=== PATIENT | female | born 1950 | race Caucasian/White ===

== ENCOUNTER 2017-02-08 14:39 | Observation (INO) | payer MEDICARE, OTHER ==
--- NOTE | ~2017-02-08 | CO ---
Unit #: [id number] #: [id number] Patient: MARY CALDERÓN [id number] [address] [address] [id number] I MR#: [id number] NAME: MARY CALDERÓN ROOM: 331 Age: 66 Sex: F Admission Date: 02/08/2017 : 1950 Attending Physician: Dot Paige M.D. Primary Care Physician: Danielle Ornelas Aprn Consultation Date: 02/09/2017 CONSULTATION REPORT REASON FOR CONSULTATION Renal failure. Thank you very much for asking me to see this patient. HISTORY OF PRESENT ILLNESS Ms. Mary Calderón is a 66-year-old female, with history of end-stage renal disease, on hemodialysis every Monday, , and Monday; history of atrial fibrillation; history of diabetes, who presented to the hospital last night complaining of chest pain. Apparently, the patient fell on Monday. She does not remember what happened, she just remembers landing her face first on the floor and now with large hematoma and bruising on her face and shoulders. She was admitted for chest discomfort. She states she does not have any shortness of breath. No nausea or vomiting. No diarrhea. She denies any significant lower extremity swelling. Again, she went to dialysis on Tuesdays and using a tunneled catheter in her chest but has a maturing fistula in her right upper arm. PAST MEDICAL HISTORY History of end-stage renal disease, as mentioned above with dialysis every Monday, , Monday; history of atrial fibrillation; history of diabetes mellitus; history of CVA; history of ovarian CA; history of Clostridium difficile in the past. REVIEW OF SYSTEMS As mentioned in the HPI. She denies any fevers, chills, cough, or hemoptysis. No neck pain or neck stiffness she denies any severe abdominal pain, nausea, vomiting, or diarrhea. She denies any recent seizures or strokes. SOCIAL HISTORY No alcohol or smoking at this time. ALLERGIES No known drug allergies. MEDICATIONS At home include Vimpat 100 mg b.i.d., Claritin 10 mg a day, Lopressor 12.5 mg b.i.d., pyridoxine 50 mg a day, Xanax t.i.d., Eliquis 2.5 mg b.i.d., aspirin 81 mg a day, Lipitor 10 mg a day, Klonopin 1 mg b.i.d., Colace 100 mg b.i.d., Prozac 40 mg a day, Neurontin 100 mg at night, Lortab p.r.n. for pain, and insulin. Unit #: [id number] #: [id number] Patient: MARY CALDERÓN PHYSICAL EXAMINATION GENERAL: She is alert and oriented. VITAL SIGNS: Her T-max is 98.8, her pulse is 61 to 75, her blood pressure is 120 to 168 over 40s to 100. HEENT: She has a large hematoma on her left forehead. She has bilateral periorbital bruising. She has some bruising on her face, on her chin. NECK: Supple. No adenopathy. CARDIAC: She is without a rub. No S3 or S4. Irregular. LUNGS: Clear bilaterally. No wheezes, rhonchi, or rales. ABDOMEN: Overweight, bowel sounds positive, nontender, soft. EXTREMITIES: She has no significant lower extremity swelling. She has a tunneled catheter in her upper right chest. She has a fistula maturing in right arm. : Deferred. NEURO: She is alert and oriented. DIAGNOSTIC STUDIES IMAGING STUDIES: She had a chest x-ray yesterday on presentation in the emergency room that showed some cardiomegaly, but no evidence of any infiltrates or effusions or congestive heart failure. LABORATORY RESULTS: When she was admitted yesterday she had a potassium of 4.9, labs this morning shows BUN and creatinine of 47 and 6.2, glucose was up to 354, potassium is 5.9, bicarb is 22, chloride is 98, calcium is 8.2. Liver function tests were normal. BNP was 437. Troponin 0.03. Her INR is 1.1. Her hemoglobin is 10.5, white count 12,000, platelets 186,000. ASSESSMENT AND PLAN 1. End-stage renal disease. We will plan on dialyzing the patient today. We will remove 2 to 3 L, put her on a 2 potassium bath. Her potassium is elevated this morning, although part of that is also related to hyperglycemia. We will plan on Monday, , Monday dialysis while she is here. 2. Hyperkalemia. As mentioned above, related to renal failure as well as hyperglycemia. 3. Status post fall with lot of abrasions and bruising on her face. 4. History of diabetes mellitus. 5. History of anemia. Hemoglobin is 10.5 today. We will give EPO with dialysis. 6. Chest pain, questionable from her fall versus cardiac has been worked up. Dictated by.Timur Cramer M.D. FATOU/campos TD: 02/10/2017 06:29 JOB #: [id number] Unit #: [id number] #: [id number] Patient: MARY CALDERÓN CONSULTATION REPORT Page 1 of 1 X Kimberly Cramer MD X CONSULTATION REPORT
--- NOTE | ~2017-02-08 | CR72 ---
[facility] A Service of [facility] RADIOLOGY TEXT RESULTS PATIENT: MARY CALDERÓN [facility]: [facility] 331-01 : 52 UNIT #: [id number] AGE: [address]: Dot Paige MD SEX: F ORDER DR: [id number] [facility] [address] [facility]. [place], [place] [address] [id number] MR#: [id number] Acc #: [id number] NAME: MARY CALDERÓN : 1950 SEX: F STUDY DATE/TIME: 02/08/2017 13:48 UNIT: AL[place] ROOM: STUDY DESCRIPTION: CR Chest Single View Portable Attending Physician: Annabella Knowles M.D. Ordering Physician: Annabella Knowles M.D. Primary Care Physician: Danielle Ornelas Aprn MEDICAL IMAGING REPORT This report is preliminary unless electronic signature is present EXAM Chest, portable. DATE OF EXAM 02/08/2017, 1348 hours. CLINICAL HISTORY 66-year-old with history of shortness of air for 2 hours prior to admission. COMPARISON 09/10/2016 FINDINGS Portable upright chest demonstrates moderate cardiomegaly increased from 09/10/2016, which could be due to cardiomegaly or pericardial fluid. There is a right central venous catheter with inferior tip in the lower right atrium unchanged. There is perihilar vascular crowding without definite edema, pneumonia or effusion. Calcified granulomatous changes are present. IMPRESSION 1. Lung volumes are lower. Cardiac silhouette is increased from 09/10/2016, which could be exaggerated by the low lung volumes. The presence of cardiomegaly and/or pericardial fluid cannot be excluded. The lungs are clear and there are no effusions. 2. Stable right central venous catheter with inferior tip in the lower right atrium. Dictated by... Cindy Ibarra M.D. [facility] A Service of [facility] RADIOLOGY TEXT RESULTS PATIENT: MARY CALDERÓN LOCATION: [facility] 331-01 : [birth year] UNIT #: [id number] AGE: [address]: Dot Paige MD SEX: F ORDER DR: THIS IS AN ELECTRONICALLY VERIFIED REPORT Cindy Ibarra M.D. at 02/09/2017 9:34 AM GERARDO/america TD: 02/08/2017 15:41 JOB #: [id number] MEDICAL IMAGING REPORT Page 1 of 1 COPY
--- NOTE | ~2017-02-08 | DS ---
Unit #: [id number] #: [id number] Patient: MARY CALDERÓN [id number] [address] [address] [id number] I MR#: [id number] NAME: MARY CALDERÓN ROOM: 331 Age: 66 Sex: F Admission Date: 02/08/2017 : 1950 Discharge Date: Attending Physician: Dot Paige M.D. Primary Care Physician: Danielle Ornelas, Trevor DISCHARGE SUMMARY PRINCIPAL DIAGNOSES 1. Chest pain, atypical, unlikely musculoskeletal. 2. Hyperkalemia. 3. End-stage renal disease, maintained on hemodialysis Monday, , and Monday. 4. Atrial fibrillation. 5. Diabetes mellitus type 2, insulin-requiring. 6. Prior history of stroke. 7. History of questionable memory loss. 8. History of ovarian cancer. 9. Hypertension. 10. Anxiety. 11. Depression. 12. Prior history of seizure. 13. Morbid obesity. 14. Probable obstructive sleep apnea. ROPE CLEANER(S) 1. Dr. Cramer, nephrology. 2. Dr. Cutler, cardiology. PROCEDURE(S) 1. Stress echo results which are currently pending. 2. Hemodialysis on , February 09, 2017. 3. Chest x-ray, February 08, 2017, with clear lungs. CLINICAL HISTORY AND HOSPITAL COURSE Mr. Calderón is a 66-year-old female who presents to the emergency department with complaints of shortness of breath in addition to chest pain. Symptoms began after a fall on Monday with subsequent hematoma formation over the left forehead and bilateral black eyes. The patient was complaining of chest tenderness and bilateral arm pain. Troponin was unremarkable and EKG was unremarkable. She was placed on observation for further evaluation. Dr. Cutler was consulted, and the patient has undergone stress echo. This report is currently pending. We will await results. Dr. Cramer was consulted given the patient's end-stage renal disease, and she did complete hemodialysis on February 09. She did have some associated electrolyte abnormalities including hyperkalemia. This was corrected on hemodialysis. The patient today states that she feels fine, and states she wants to go home. I anticipate she will be discharged home and stress echo is Unit #: [id number] #: [id number] Patient: MARY CALDERÓN negative. CONDITION ON DISCHARGE Stable. DISCHARGE STATUS Discharge to home. DISCHARGE MEDICATIONS 1. Eliquis 2.5 mg b.i.d. 2. Claritin 10 mg daily. 3. Lantus 45 units subcutaneously b.i.d. 4. Neurontin 100 mg at bedtime. 5. Lipitor 10 mg at bedtime. 6. Lopressor 12.5 mg b.i.d. 7. Vimpat 100 mg b.i.d. 8. Klonopin 1 mg p.o. b.i.d. p.r.n. for anxiety. 9. Pyridoxine 50 mg daily. 10. Prozac 40 mg daily. 11. Aspirin 81 mg daily. 12. Colace 100 mg b.i.d. 13. Lortab 5/325, 1 q. 8 hours p.r.n. for pain. DISCHARGE INSTRUCTIONS The patient was instructed a heart healthy low-calorie, low-carbohydrate diet. She can increase activity as tolerated to obtain Accu-Cheks a.c. and h.s. at home. FOLLOWUP The patient again will continue hemodialysis Monday, , and Monday. She will follow up with her primary care provider in 2 weeks. Dictated by... Dot Paige M.D. KASANDRA/felicia TD: 02/10/2017 08:50 JOB #: [id number] DISCHARGE SUMMARY Page 1 of 1 X Dot Paige MD X DISCHARGE SUMMARY
--- NOTE | ~2017-02-08 | HP ---
Unit #: [id number] #: [id number] Patient: MARY CALDERÓN [id number] [address] [address] [id number] I MR#: [id number] NAME: MARY CALDERÓN ROOM: 84766 Age: 66 Sex: F Admission Date: 02/08/2017 : 1950 Attending Physician: Rose Thrasher M.D. Primary Care Physician: Danielle Ornelas Aprn HISTORY AND PHYSICAL CHIEF COMPLAINT Shortness of breath. HISTORY OF PRESENT ILLNESS The patient is a 66-year-old female with history of end-stage renal disease on dialysis, atrial fibrillation on chronic anticoagulation, diabetes, CVA, thyroid goiter, ovarian cancer, C difficile and hypertension, brought to the emergency room complaining of the shortness of breath and dyspnea. The patient also complains of the heaviness on the chest and on bilateral arms for one hour. The patient was brought to the emergency room for the above reasons. The patient denies any fever, chills, or atrial fibrillation. The patient had a fall on Monday with bruises on the left upper eyelid and periocular region. The patient is being admitted for the above reasons. However, the patient is screaming that she wants to go home but Alexis, the , and the ER physician stated the patient has a history of dementia and that she is going to stay with the agreeing that she will stay overnight. PAST MEDICAL HISTORY 1. History of altered mental status. 2. End-stage renal disease. 3. Atrial fibrillation. 4. Diabetes. 5. Goiter. 6. CVA. 7. Ovarian cancer. 8. C difficile. 9. Hypertension. PAST SURGICAL HISTORY 1. Cardiac catheterization. 2. Laser surgery. 3. Total abdominal hysterectomy and bilateral salpingo-oophorectomy for ovarian cancer. 4. Colonoscopy. 5. Thyroid surgery. HOME MEDICATIONS 1. Xanax. 2. Eliquis. 3. Aspirin. 4. Lipitor. 5. Klonopin. 6. Colace. Unit #: [id number] #: [id number] Patient: MARY CALDERÓN 7. Prozac. 8. Neurontin. 9. Lortab. 10. Lantus. 11. Vimpat. 12. Claritin. 13. Lopressor. 14. Pyridoxine. ALLERGIES No known drug allergies. SOCIAL HISTORY The patient lives with her . There is on tobacco, alcohol or any illicit drug abuse. Her code status is a DO NOT RESUSCITATE from the records. She walks with a walker. FAMILY HISTORY Notable for colon cancer. REVIEW OF SYSTEMS A 14-point review of systems performed and only pertinent positive findings are described above, remaining are negative. PHYSICAL EXAMINATION VITAL SIGNS: Temperature 97.9, pulse 75, respiratory rate 26, blood pressure 149/100, saturating 99% at room air. GENERAL: Patient is lying on the bed, is screaming that she wants to go home. HEENT: Atraumatic, normocephalic. Orbital swelling with bruises and hematoma on the left forehead above the eyelid. NECK: Supple. LUNGS: Decreased air entry at the bases. HEART: Irregular rate and rhythm. ABDOMEN: Soft, positive bowel sounds. EXTREMITIES: No cyanosis. NEUROLOGIC: Alert, awake, oriented. DIAGNOSTIC STUDIES LABORATORY: pH 7.43, pCO2 of 43, pO2 of 105, bicarb 29, oxygen saturation 97.2. Glucose 247, BUN 37, creatinine 5.2, sodium 137, potassium 4.9, chloride 96, bicarb 28, calcium 8.4, total protein 7.4, AST 21, ALT 20, alkaline phosphatase 107 and BNP is 437. WBC 11.4, hemoglobin 10.2, hematocrit 32.1, platelets 213, neutrophils 82.6%. CARDIOVASCULAR: EKG shows atrial fibrillation at a rate of 70 beats per minute, nonspecific ST-T abnormalities. QTC of 501. ASSESSMENT AND PLAN 1. Chest pain, rule out ischemia. 2. End-stage renal disease on dialysis. 3. Status post fall with hematoma left forehead. PLAN 1. Admit patient as observation with telemetry. 2. Continue with serial troponins to rule out ischemia. 3. Cardiology evaluation for the chest pain. 4. Renal for hemodialysis. Unit #: [id number] #: [id number] Patient: MARY CALDERÓN 5. Hold Xanax, Klonopin, and blood thinner. 6. Further recommendations will follow as more lab results become available. Dictated by Cherie Barboza TD: 02/08/2017 19:53 JOB #: [id number] HISTORY AND PHYSICAL Page 1 of 1 X X HISTORY AND PHYSICAL
--- NOTE | ~2017-02-08 | CO ---
Unit #: [id number] #: [id number] Patient: MARY CALDERÓN [id number] [facility]. [place], [place] [address] [id number] I MR#: [id number] NAME: MARY CALDERÓN ROOM: 331 Age: 66 Sex: F Admission Date: 02/08/2017 : 1950 Attending Physician: Dot Paige M.D. Primary Care Physician: Danielle Ornelas Aprn Consultation Date: 02/09/2017 CONSULTATION REPORT REASON FOR CONSULTATION Chest pain. HISTORY OF PRESENT ILLNESS The patient is a 66-year-old female with a history of paroxysmal atrial fibrillation, end-stage renal disease, on dialysis, CVA, nonobstructive coronary artery disease, hypertension, diabetes mellitus, who presented to the hospital with complaints of chest pain. The patient had a fall and syncopal episode on Monday and was treated at [facility] Emergency Department at that time. The patient states at that time, she was seated in her chair and then ended up on the floor. According to the ER records, it looks like the patient tried to stand and then ended up on the floor. There was amnesia associated with the event. The patient has subsequent hematoma above her left eye and bruising under both eyes as well as below her chin. The patient developed chest pressure on 02/08/2017. The patient states that she was seated at that time, the pressure was in the center of her chest that she had radiation to her arms as well. There was a little shortness of breath, but no nausea, vomiting, or diaphoresis. She states that the discomfort lasted approximately 1 hour overall and she did not receive any nitroglycerin. The patient does not follow with a cable splicing technician. The patient was sitting at that time, the chest pressure started. PAST CARDIAC TESTING HISTORY She had a left heart catheterization on 01/10/2008 at [facility] with Dr. Monserrat Edouard that showed an ejection fraction of 65%. LVEDP was 25. The left main and left circumflex are normal. The LAD had luminal irregularities. The RCA had a distal 40% stenosis proximal to the bifurcation of the posterolateral branch and PDA. PAST MEDICAL HISTORY 1. Paroxysmal atrial fibrillation. 2. Nonobstructive coronary artery disease. 3. End-stage renal disease, on dialysis. 4. History of CVA with residual right sided weakness. 5. History of ovarian cancer. 6. Diabetes mellitus. 7. Hypertension. 8. Hyperlipidemia. 9. Thyroid, goiter. 10. History of C diff. MEDICATIONS Her home medications are Vimpat 100 mg b.i.d., Claritin 10 mg daily, Unit #: [id number] #: [id number] Patient: MARY CALDERÓN Lopressor 12.5 mg b.i.d., pyridoxine 50 mg daily, Xanax 0.5 mg t.i.d. p.r.n., Eliquis 2.5 mg b.i.d., aspirin 81 mg daily, Lipitor 10 mg q.h.s., Klonopin 1 mg b.i.d., Colace 100 mg b.i.d., Prozac 40 mg daily, Neurontin 100 mg q.h.s., Lortab 10/325 q.8 hours p.r.n., Lantus 45 units subcu b.i.d. ALLERGIES She has no known drug allergies. SOCIAL HISTORY She does not smoke and has never smoked. She denies alcohol use or illicit drug use. She is and lives at home with her . FAMILY HISTORY Mother of an OK at the age of 64, a brother had an OK in his 60s and another brother had OK in his 60s. REVIEW OF SYSTEMS GENERAL: The patient denies recent fevers or chills, but she has recently been treated for bronchitis with antibiotics and steroids and is currently off both medications. HEENT: Denies frequent headaches. Denies epistaxis or dysphagia. SKIN: Denies rashes or hives. PULMONARY: Still with occasional cough and wheezing. CARDIAC: As above. Denies palpitations or tachycardia. She does have orthopnea and sleeps in the hospital bed with head of bed elevated. GI: Denies nausea, vomiting, diarrhea, or melena. : Denies hematuria. EXTREMITIES: Denies swelling. NEUROLOGIC: Syncopal episode as discussed above, possibly due to position change. DIAGNOSTIC STUDIES LABORATORY RESULTS: Troponin was 0.03 at 4:45 this morning, 0.03 at 21:14 yesterday and less than 0.05 at 14:09 yesterday. Sodium 135, potassium 5.9, chloride 98, CO2 of 22, BUN 47, creatinine 6.6, and glucose 354. White blood cell 12.0, hemoglobin is 10.5, hematocrit 32.6, and platelets are 186. PT 11.1, INR 1.1. IMAGING STUDIES: Chest x-ray shows low lung volumes. There is an increase in cardiac size from 09/10/2016. Cardiomegaly and/or pericardial fluid could not be excluded. EKG shows normal sinus rhythm with nonspecific ST abnormality. Nonobstructive coronary disease by left heart catheterization in 2007. PHYSICAL EXAMINATION VITAL SIGNS: Blood pressure is 165/73, heart rate 66 and regular, respirations 18, temperature is 97.8, O2 saturation 99% on room air, weight 113 kg. GENERAL: The patient is a well-nourished, obese female, in no acute distress. Awake and oriented x3. The patient responds to questions appropriately. Speech is somewhat delayed. SKIN: There is a hematoma above the left eye as well as ecchymoses bilaterally under each eye and below her chin in the neck area. NECK: No JVD. SPINE: No scoliosis. CHEST: Clear to auscultation bilaterally with bilateral wheezes. No rhonchi. No accessory muscle use. CORONARY: Regular rate and rhythm without murmur, gallop, rub, or lift. Unit #: [id number] #: [id number] Patient: MARY CALDERÓN ABDOMEN: Soft, nontender, nondistended. Positive bowel sounds x4. The abdominal pulsation is not enlarged. EXTREMITIES: No clubbing, cyanosis, or edema. NEUROLOGIC: Awake and oriented x3. ASSESSMENT AND PLAN 1. Chest pain. 2. Diabetes mellitus. 3. Hypertension. 4. Paroxysmal atrial fibrillation, on Eliquis. 5. History of cerebrovascular accident in 2011. 6. End-stage renal disease, on dialysis. 7. Recent syncope with fall. 8. Hyperkalemia, treated with insulin and D50. Ms. Calderón's case was discussed with Dr. Vinayak Cutler. Serial troponins are negative. The patient will have a dobutamine stress echo and further recommendations will follow. Further recommendations will follow based on the results of the patient's dobutamine stress echo. Dictated by... Sunshine Mensah, P.A.C. for Vinayak Cutler M.D. CMG/campos TD: 02/10/2017 06:39 JOB #: [id number] CONSULTATION REPORT Page 1 of 1 X X CONSULTATION REPORT
--- NOTE | ~2017-02-08 | DS ---
Unit #: [id number] #: [id number] Patient: MARY CALDERÓN [id number] [facility]. [place], [place] [address] [id number] I MR#: [id number] NAME: MARY CALDERÓN ROOM: 331 Age: Sex: F Admission Date: 02/08/2017 : 1950 Discharge Date: 02/10/2017 Attending Physician: Dot Paige M.D. Primary Care Physician: Danielle Ornelas Aprn DISCHARGE SUMMARY ADDENDUM PROCEDURE Stress echocardiogram which is negative for ischemia. HOSPITAL COURSE The patient was maintained overnight awaiting echo results. This was negative. Today, she has had no chest pain. There were concerns because the patient kept repeating she wanted to go home. I think there was concern that perhaps patient was confused or hallucinating and she was given a dose of Haldol; however, this morning as she was yesterday, she is alert and oriented x3, can answer all appropriate questions including timeframe and states simply she feels fine and she wants to go home. I am going to cancel psychiatric consult as ordered yesterday and discharge her home. DISCHARGE MEDICATIONS Discharge medications are as previously dictated yesterday. Dictated by... Dot Paige M.D. KASANDRA/yanick TD: 02/11/2017 13:26 JOB #: [id number] DISCHARGE SUMMARY Page 1 of 1 X Dot Paige MD DISCHARGE SUMMARY
--- NOTE | ~2017-02-08 | EKG ---
PATIENT: MARY CALDERÓN UNIT #: [id number] Ventricular Rate: 70 BPM Atrial Rate: 70 BPM P-R Interval: 154 ms QRS Duration: 96 ms Q-T Interval: 464 ms QTC Calculation(Bezet): 501 ms P Davenport: 57 degrees Calculated R Daven[place]: 5 degrees Calculated T Davenport: 6 degrees Diagnosis Line: Sinus rhythm Diagnosis Line: Nonspecific ST abnormality Diagnosis Line: Prolonged QT Diagnosis Line: Abnormal ECG Diagnosis Line: When compared with ECG of 01-APR-2016 20:32, Diagnosis Line: Current undetermined rhythm precludes rhythm Diagnosis Line: comparison, needs review Diagnosis Line: Confirmed by ANGELES BIRCH MD ([id number]) on 02/12/2017 Diagnosis Line: 3:50:10 PM INTERPRETING MD: EYAL YOO
[2017-02-08 14:10] LABS: ARTERIAL BLD GAS O2 SATURATION 96.2 % (90.0-100.0); ARTERIAL BLOOD GAS CARBOXY HB 1.3 %sat (0.0-9.0); ARTERIAL BLOOD GAS HCO3 29.4 mmol/L; ARTERIAL BLOOD GAS MET HB 0.8 %sat (0.0-2.0); ARTERIAL BLOOD GAS PCO2 43.8 mmHg (35.0-45.0); ARTERIAL BLOOD GAS pH 7.435 (7.350-7.450)
[2017-02-08 14:11] LABS: POC - CKMB 2.3 ng/mL (0.0-7.9); POC - TROPONIN <0.05 ng/mL (<=0.05)
[2017-02-08 14:12] LABS: ARTERIAL BLOOD GAS ALLEN TEST POS; ARTERIAL BLOOD GAS ART SITE LEFT RADIAL; ARTERIAL BLOOD GAS DELIVERY VENTURI MASK; ARTERIAL DRAW? YES
[2017-02-08 14:17] LABS: BASOPHIL# 0.1 X10e3 (0-0.3); BASOPHIL% 0.9 % (0-2.5); EOSINOPHIL# 0.3 X10e3 (0-0.7); EOSINOPHIL% 2.3 % (0.0-7.0); HEMATOCRIT 32.1 % (35.0-45.0); HEMOGLOBIN 10.2 gm/dL (12.0-16.0); LYMPHOCYTE# 0.9 X10e3 (1.0-3.5); MEAN CELL VOLUME 96.9 FL (83-96); MEAN CORPUSCULAR HEMOGLOBIN 30.8 PG (28-34); MEAN CORPUSCULAR HGB CONC 31.8 g/dL (30-36); MONOCYTE# 0.7 X10e3 (0-1.0); MONOCYTE% 6.2 % (3.0-12.0); NEUTROPHIL# 9.4 X10e3 (1.5-7.1); NEUTROPHIL% 82.6 % (40-75); PLATELET COUNT 213 X10e3 (140-420); RED BLOOD COUNT 3.32 X10e (3.90-5.30); RED CELL DISTRIBUTION WIDTH 19.6 % (11.0-15.5); WHITE BLOOD COUNT 11.4 X10e3 (4.0-10.5)
[2017-02-08 14:20] LABS: DIFF IND NO
[2017-02-08 14:35] LABS: ALBUMIN SERUM 3.7 g/dL (3.5-5.0); BILIRUBIN, DIRECT 0.1 mg/dL (0.0-0.2); BILIRUBIN,INDIRECT 0.6 mg/dL (0.0-0.9); BILIRUBIN,TOTAL 0.7 mg/dL (0.2-2.0); BUN/CREATININE RATIO 7.11; CALCIUM SERUM 8.4 mg/dL (8.4-10.2); CREATININE SERUM 5.2 mg/dL (0.6-1.4); GLOM FILT RATE Estimated 8.1 mL/min (>60); POTASSIUM 4.9 mmol/L (3.5-5.1); PROTEIN TOTAL SERUM 7.4 g/dL (6.0-8.3)
[~2017-02-08 14:39] MED LIST: ALLERCLEAR10 MG PO; AMLODIPINE BESYL5 MG PO; ASPIRIN81 M2 PO; ASPIRIN81 MG PO; ASPIRINEC PO; ATORVASTATIN CA10 MG PO; B-COMPLEX-VITA1 EACH PO; B6100 MG PO; BACLOFEN10 MG PO; BACLOFEN20 M1 PO; BAYER ASPIRIN325 M1 PO; BENICAR PO; CALCIUM 500 + D1 TAB PO; CALCIUM CITRAT250 MG PO; CALCIUM1 TAB.CHEW PO; CALCIUM500 MG PO; CEPHALEXIN250 M1 PO; CIPRO PO; CITRACAL200 MG PO; CLARITIN R10 MG REDI PO; CLARITIN10 M2 PO; CLARITIN10 M3 PO; COGENTIN1 M1 DOB; COUMADIN; COUMADIN PO; COUMADIN2.5 MG PO; COUMADIN7.5 MG PO; CYMBALTA PO; DEMADEX PO; DOCUSATE SODIU100 MG PO; DUONEB 2.5-0.5 M3 ML IN; ECOTRIN325 MG PO; ELIQUIS2.5 MG PO; FLEET ENEMA133 ML RC; FLORASTOR250 M1 PO; FORTAMET PO; GABAPENTIN300 M2 PO; GABAPENTIN400 MG PO; GENTLE LAXATIVE10 MG RC; HALOPERIDOL1 MG PO; HCTZ PO; HUMALOG100 U/ML SUBQ; HYDROCODON-ACE1 EACH PO; IMDUR-ER60 M1 PO; ISOSORBIDE MONO20 MG PO; KCL PO; KEFLEX500 MG PO; KLONOPIN1 MG PO; LANTUS100 U/ML SUBQ; LANTUS100 UNITS/ INJ; LANTUS100 UNITS/ SUBQ; LEVAQUIN PO; LEVEMIR SUBQ; LEVETIRACETAM500 MG PO; LIPITOR PO; LISINOPRIL PO; LISINOPRIL20 MG PO; LOPRESSOR PO; LORTAB 10-3251 EACH PO; LORTAB 5/500 TA1 TA1 PO; METOPROLOL SUCC25 MG PO; METOPROLOL TAR25 MG PO; MILK OF MAGNESIA PO; MIRALAX17 GM PO; MULTIVITAMINS1 EAC2 PO; MYCOSTATIN POWD15 GM EXT; NEURONTIN PO; NEURONTIN100 MG PO; NEURONTIN300 MG PO; NEURONTIN600 MG PO; NORVASC PO; NORVASC2.5 MG PO; NOVOLOG FL100 UNIT/1 SUBQ; NOVOLOG100 U/ML; NOVOLOG100 U/ML SUBQ; NOVOLOG100 UNITS/ SUBQ; NYSTATIN15 G1 TP; OLANZAPINE5 MG PO; OMNICEF300 MG PO; OXYGEN; PANTOPRAZOLE SO40 MG PO; PHOSLO667 MG PO; POLYCAL PO; POTASSIUM CHLO10 ME1 PO; PRAVACHOL PO; PRAVASTATIN SOD40 MG PO; PRENATAL VITAM1 EACH PO; PRINIVIL40 MG PO; PROTONIX PO; PROZAC40 M1 PO; PROZAC40 MG PO; PYRIDIUM PO; PYRIDOXINE HCL50 MG PO; SERTRALINE HCL100 M1 PO; TEKTURNA; TEKTURNA PO; TOPROL XL PO; TRICOR PO; TYLENOL325 M1 PO; VELPHORO500 MG PO; VIMPAT100 MG PO; VITAMIN B-6200 M1 PO; VITAMIN B-650 M1 PO; VITAMIN B650 M1 PO; VITAMIN B650 M2 PO; VITAMIN B650 MG PO; WARFARIN SODIUM1 MG PO; XANAX0.5 M1 PO; ZITHROMAX PO; ZOCOR20 MG PO; ZOLOFT50 MG PO; ZYPREXA2.5 MG PO; [UNRECOGNIZED DRUG - OTHER] PO
[2017-02-08 15:26] LABS: POC - TROPONIN <0.05 ng/mL (<=0.05)
[2017-02-09 04:29] LABS: BASOPHIL# 0.1 X10e3 (0-0.3); BASOPHIL% 0.6 % (0-2.5); EOSINOPHIL% 0.1 % (0.0-7.0); HEMATOCRIT 32.6 % (35.0-45.0); HEMOGLOBIN 10.5 gm/dL (12.0-16.0); LYMPHOCYTE# 0.6 X10e3 (1.0-3.5); LYMPHOCYTE% 4.8 % (17.0-45.0); MEAN CELL VOLUME 97.2 FL (83-96); MEAN CORPUSCULAR HEMOGLOBIN 31.1 PG (28-34); MONOCYTE# 0.7 X10e3 (0-1.0); MONOCYTE% 5.6 % (3.0-12.0); NEUTROPHIL# 10.7 X10e3 (1.5-7.1); NEUTROPHIL% 88.9 % (40-75); PLATELET COUNT 186 X10e3 (140-420); RED BLOOD COUNT 3.36 X10e (3.90-5.30); RED CELL DISTRIBUTION WIDTH 20.3 % (11.0-15.5)
[2017-02-09 04:30] LABS: DIFF IND NO
[2017-02-09 04:34] LABS: INR 1.1; PROTHROMBIN TIME (PATIENT) 11.1 SECONDS (9.6-11.5)
[2017-02-09 04:45] LABS: BUN/CREATININE RATIO 7.58; CALCIUM SERUM 8.2 mg/dL (8.4-10.2); CREATININE SERUM 6.2 mg/dL (0.6-1.4); GLOM FILT RATE Estimated 6.6 mL/min (>60)
[2017-02-09 04:46] LABS: POTASSIUM 5.9 mmol/L (3.5-5.1)
[2017-02-10 05:11] LABS: HEMATOCRIT 32.4 % (35.0-45.0); HEMOGLOBIN 10.3 gm/dL (12.0-16.0); MEAN CELL VOLUME 97.1 FL (83-96); MEAN CORPUSCULAR HEMOGLOBIN 30.8 PG (28-34); MEAN CORPUSCULAR HGB CONC 31.7 g/dL (30-36); MEAN PLATELET VOLUME 7.5 FL (6.5-11.5); RED BLOOD COUNT 3.34 X10e (3.90-5.30); RED CELL DISTRIBUTION WIDTH 19.7 % (11.0-15.5); WHITE BLOOD COUNT 12.2 X10e3 (4.0-10.5)
[2017-02-10 05:47] LABS: BUN/CREATININE RATIO 7.5; CALCIUM SERUM 8.5 mg/dL (8.4-10.2); CREATININE SERUM 4.8 mg/dL (0.6-1.4); GLOM FILT RATE Estimated 8.9 mL/min (>60); POTASSIUM 4.8 mmol/L (3.5-5.1)
== END 2017-02-10 14:03 | disposition home or self-care (01) ==
LOC: CED 14:39 → CEDOF 18:20 → C3A PCU 20:11
PROVIDERS: Emergency Medicine; Internal Medicine; Internal Medicine Nephrology
DX: R07.89 Other chest pain (principal); I12.0 Hypertensive chronic kidney disease with stage 5 chronic kidney disease or end stage renal disease; E11.22 Type 2 diabetes mellitus with diabetic chronic kidney disease; N18.6 End stage renal disease; D63.1 Anemia in chronic kidney disease; Z79.4 Long term (current) use of insulin; Z99.2 Dependence on renal dialysis; E87.5 Hyperkalemia; E66.01 Morbid (severe) obesity due to excess calories; I48.0 Paroxysmal atrial fibrillation; Z79.01 Long term (current) use of anticoagulants; Z86.73 Personal history of transient ischemic attack (TIA), and cerebral infarction without residual deficits; Z85.43 Personal history of malignant neoplasm of ovary; I25.10 Atherosclerotic heart disease of native coronary artery without angina pectoris; R55 Syncope and collapse; Z80.0 Family history of malignant neoplasm of digestive organs; F41.8 Other specified anxiety disorders; Z79.82 Long term (current) use of aspirin
CPT/HCPCS: 36415; 36600; 71010; 80048; 80076; 82553; 82803; 82947; 83880; 84484; 85025; 85027; 85610; 93005; 93017; 94640; 94760; 96372; 96374; 99285; G0257; G0378; J0461; J1250; J1630; J1644; J1815; J2930; Q4081; Q9957